=== PATIENT | female | born 1995 | race Two or more races ===

== ENCOUNTER 2017-12-04 16:11 | Emergency (ER) | payer SELFPAY ==
--- NOTE | 2017-12-04 18:22 | ER Document Report ---
ED GI/ - General Chief Complaint: STD Exposure Stated Complaint: POSSIBLE STD Time Seen by Provider: 12/04/17 17:50 Mode of Arrival: Ambulatory Information source: Patient Notes: 22-year-old female presents to ED for for complaint of possible STD with . She states she was having frequency and urgency so she did a test on 30 November and it was positive at home. She states that since then her boyfriend has had a penile discharge but she has had no symptoms. She wants to be tested for STDs since she is . TRAVEL OUTSIDE OF THE [place] IN LAST 30 DAYS: No - HPI Patient complains to provider of: , Other - Exposed to possible STDs Onset: Other - They did a home test on 30 November because she was having frequency and urgency Timing/Duration: Persistent Quality of pain: Burning Pain Level: Denies Sexual history: STD exposure Associated symptoms: Urinary frequency, Urinary urgency, Other - Julieta Exacerbated by: Denies Relieved by: Denies Similar symptoms previously: No Recently seen / treated by doctor: No - Related Data Allergies/Adverse Reactions: No Known Allergies Allergy (Unverified 12/04/17 16:14) Past Medical History - General Information source: Patient - Social History Smoking Status: Never Smoker Cigarette use (# per day): No Chew tobacco use (# tins/day): No Smoking Education Provided: No Frequency of alcohol use: None Drug Abuse: None Lives with: Spouse/Significant other Family History: Reviewed & Not Pertinent Patient has suicidal ideation: No Patient has homicidal ideation: No - Past Medical History Cardiac Medical History: Reports: None Pulmonary Medical History: Reports: None EENT Medical History: Reports: None Neurological Medical History: Reports: None Endocrine Medical History: Reports: None Renal/ Medical History: Reports: None Malignancy Medical History: Reports: None GI Medical History: Reports: None Musculoskeletal Medical History: Reports None Skin Medical History: Reports None Psychiatric Medical History: Reports: None Traumatic Medical History: Reports: None Infectious Medical History: Reports: None Surgical Hx: Negative Past Surgical History: Reports: None - Immunizations Immunizations up to date: Yes Review of Systems - Review of Systems Constitutional: No symptoms reported EENT: No symptoms reported Cardiovascular: No symptoms reported Respiratory: No symptoms reported Gastrointestinal: No symptoms reported Genitourinary: No symptoms reported Female Genitourinary: No symptoms reported Musculoskeletal: No symptoms reported Skin: No symptoms reported Hematologic/Lymphatic: No symptoms reported Neurological/Psychological: No symptoms reported -: Yes All other systems reviewed and negative Physical Exam - Vital signs Vitals: Temp Pulse Resp BP Pulse Ox 98.1 F 102 H 18 134/61 H 100 12/04/17 16:18 12/04/17 16:18 12/04/17 16:18 12/04/17 16:18 12/04/17 16:18 Interpretation: Normal - General General appearance: Appears well, Alert - HEENT Head: Normocephalic, Atraumatic Eyes: Normal Pupils: PERRL - Respiratory Respiratory status: No respiratory distress Chest status: Nontender Breath sounds: Normal Chest palpation: Normal - Cardiovascular Rhythm: Regular Heart sounds: Normal auscultation Murmur: No - Abdominal Inspection: Normal Distension: No distension Bowel sounds: Normal Tenderness: Nontender Organomegaly: No organomegaly - Back Back: Normal, Nontender - Extremities General upper extremity: Normal inspection, Nontender, Normal color, Normal ROM , Normal temperature General lower extremity: Normal inspection, Nontender, Normal color, Normal ROM , Normal temperature, Normal weight bearing. No: Irene's sign - Neurological Neuro grossly intact: Yes Cognition: Normal Orientation: AAOx4 [place] Coma Scale Eye Opening: Spontaneous [place] Coma Scale Verbal: Oriented Perfecto Coma Scale Motor: Obeys Commands Perfecto Coma Scale Total: 15 Speech: Normal Motor strength normal: LUE, RUE, LLE, RLE Sensory: Normal - Psychological Associated symptoms: Normal affect, Normal mood - Skin Skin Temperature: Warm Skin Moisture: Dry Skin Color: Normal Course - Re-evaluation Re-evalutation: 12/04/17 20:50 Lab results discussed with patient before she was discharged. She was positive for GC and chlamydia. She is already been treated with azithromycin and Rocephin. Her significant other has also checked in for STDs. He is on that had the symptoms. Patient did have a positive test. She has been instructed to follow-up [place] [facility] [place] [facility] [place] Patient verbalized understanding and agreement with treatment plan. - Vital Signs Vital signs: Temp Pulse Resp BP Pulse Ox 98.1 F 102 H 18 134/61 H 100 12/04/17 16:18 12/04/17 16:18 12/04/17 16:18 12/04/17 16:18 12/04/17 16:18 - Laboratory Laboratory results interpreted by me: 12/04/17 12/04/17 18:10 18:10 Urine HCG, Qual POSITIVE H Chlamydia DNA (PCR) DETECTED H N.gonorrhoeae DNA (PCR) DETECTED H Discharge - Discharge Clinical Impression: Possible exposure to STD, and not yet delivered in first trimester Condition: Stable Disposition: HOME, SELF-CARE Instructions: [facility] [place] Additional Instructions: You are . care is best started as early in as possible. If you're unsure about continuing this , you should discuss this with your physician or with roller painter at [facility]. You should take only medications approved by your physician. Acetaminophen can safely be taken for minor pains. As a rule, medication for chronic conditions such as asthma or seizures can safely be continued. You should discuss with the physician every medicine you take. Any regular exercise program can be continued. Talk to your physician, however, before engaging in competitive or demanding sports. Alcohol, smoking, and "street drugs" are dangerous to your baby. Cocaine is especially dangerous. Don't use any illicit drugs! You state you have been exposed to STD. You were treated for GC chlamydia, trichomonas, bacterial vaginosis, and yeast. Gonorrhea and Chlamydia results do not come back for about 2-3 hours. You will be treated with Rocephin and azithromycin while in the C room. You can call tomorrow to [phone] the culture result Or you can call tomorrow between 9 AM and 9 PM [phone] and ask for Marcela and I will give you the results. No sexual intercourse until you hear the results and if the results are positive for you or your boyfriend there is no sexual intercourse for 14 days from the day you are both treated. CEPHALOSPORINS: An antibiotic of the cephalosporin class has been prescribed. This type of antibiotic covers a wide variety of infections, including those of the skin, lungs, middle ear, and urinary tract. This antibiotic is somewhat similar to the penicillin family. In rare cases , a person who is allergic to penicillin will also be allergic to this medication. If you have had a severe allergic reaction to penicillin, and have not taken this antibiotic since that time, notify your doctor. Antibiotics which cover many germs ("broad spectrum" antibiotics) are more likely to cause diarrhea or "yeast" infections. Women prone to vaginal yeast problems may suffer an attack after taking this antibiotic. In infants, oral thrush (white spots "stuck" on the cheek) or yeast diaper rash may result. See your doctor if these problems occur. Call the doctor at once if you develop hives, itching, shortness of breath , or lightheadedness. AZITHROMYCIN: Azithromycin (Zithromax) is a broad spectrum antibiotic in the same class as erythromycin. It can treat a variety of bacterial infections, but is most frequently used for respiratory infections. Azithromycin is extremely long-lasting. It accumulates in body tissues and continues to kill bacteria for many days. In order to improve absorption, Azithromycin should be taken at least one hour before or two hours after a meal. It does not have the same strong tendency to upset the stomach as erythromycin and is usually very well tolerated. Patients who have had a rash or other true allergic reactions to erythromycin should not take this medication. Call if you develop gastrointestinal distress, severe diarrhea, rash, hives, itching, or shortness of breath. FOLLOW-UP CARE: If you have been referred to a physician for follow-up care, call the physician s office for an appointment as you were instructed or within the next two days. If you experience worsening or a significant change in your symptoms, notify the physician immediately or return to the Emergency Department at any time for re-evaluation. Referrals: [facility] [Provider Group] - Follow up as needed
[2017-12-04 18:41] LABS: T.VAGINALIS (WET MOUNT) NO TRICHOMONAS SEEN; WBCS (WET MOUNT) NO WBCS SEEN; YEAST (WET MOUNT) NO YEAST SEEN
[2017-12-04] MEDS ORDERED: LIDOCAINE 1% INJ-PF (10 MG/ML) 30 ML SDV INJ ONE (18:42)
[2017-12-04] MEDS ORDERED: AZITHROMYCIN 250 MG TABLET PO ONE (18:42)
[2017-12-04] MEDS ORDERED: CEFTRIAXONE INJ 250 MG VIAL IM ONE (18:42)
[2017-12-04 18:46] LABS: APPEARANCE,URINE CLEAR; BILIRUBIN,URINE NEGATIVE (NEGATIVE); COLOR,URINE STRAW; GLUCOSE, URINE NEGATIVE (NEGATIVE); KETONES,URINE NEGATIVE (NEGATIVE); LEUKOCYTE ESTERASE,URINE NEGATIVE (NEGATIVE); NITRITE,URINE NEGATIVE (NEGATIVE); PROTEIN,URINE NEGATIVE (NEGATIVE); UROBILINOGEN,URINE NEGATIVE mg/dL (<2.0)
[2017-12-04 20:08] LABS: CHLAM PCR DETECTED (NOT DETECT); GON PCR DETECTED (NOT DETECT)
[2017-12-04 21:14] VITALS: BP 131/66
== END 2017-12-04 21:00 | disposition home or self-care (01) ==
LOC: ER 16:11
DX: O98.211 Gonorrhea complicating pregnancy, first trimester (principal); O98.311 Other infections with a predominantly sexual mode of transmission complicating pregnancy, first trimester; A56.8 Sexually transmitted chlamydial infection of other sites; R35.0 Frequency of micturition; R39.15 Urgency of urination; Z3A.00 Weeks of gestation of pregnancy not specified
CPT/HCPCS: 99283; 96372; 87086; 87210; 81025; 81001; 87491; 87591; J3490; J0696

== ENCOUNTER → 2018-01-04 | Outpatient (CLI) | payer SELFPAY ==
--- NOTE | 2018-01-04 14:50 | RADIOLOGY REPORT (SQ) ---
EXAM DESCRIPTION: U/S [id number] TRNABD 1GES W/ODOP COMPLETED DATE/TIME: 01/04/2018 2:30 pm REASON FOR STUDY: Z34.01 ENCNTR FOR SUPRVSN OF NORMAL FIRST PREG, FIRST TRIMESTER Z34.01 ENCNTR FOR SUPRVSN OF NORMAL FIRST PREG, FIRST TRIMES COMPARISON: None. TECHNIQUE: Endovaginal static and realtime grayscale images acquired of the pelvis. Additional selec nanda spectral and color Doppler images recorded. All images stored on PACs. bHCG: Not available CLINICAL DATES: unsure LIMITATIONS: None. FINDINGS: FETUS: Single Living intrauterine . ULTRASOUND EGA: 8 weeks 6 days ULTRASOUND DOYLE: 08/10/2018 EFW: Not applicable less than 20 weeks. CRL: 2.2 cm FHR: 178 beats per minute. SURVEY: Too early to assess. AMNIOTIC FLUID: Adequate amount. PLACENTA: Not yet developed due to early gestation. SUBCHORIONIC BLEED: No SIZE OF BLEED: Not applicable. UTERUS: No masses. No anomalies. Uterus is 12 x 9 x 7 cm in size CERVICAL LENGTH: 2.4 cm. Closed. RIGHT ADNEXA: Not visualized due to adnexal bowel gas LEFT ADNEXA: Not visualized due to adnexal bowel gas FREE FLUID: None. OTHER: No other significant finding. IMPRESSION: LIVING INTRAUTERINE . EGA 8 weeks 6 days Right and left adnexa not visualized due to bowel gas Trimester of : First - 0 to 13 weeks. TECHNICAL DOCUMENTATION: JOB ID: [id number] [employer]- All Rights Reserved rev Reading location - IP/workstation name: [facility]
== END ==
LOC: RAD 16:25
PROVIDERS: ATTEND Nurse Practitioner
DX: Z34.01 Encounter for supervision of normal first pregnancy, first trimester (principal)
CPT/HCPCS: 76801

== ENCOUNTER 2018-03-26 09:43 | Outpatient (CLI) | payer MEDICAID ==
[2018-03-26 10:57] LABS: APPEARANCE,URINE SLIGHTLY-CLOUDY; BILIRUBIN,URINE NEGATIVE (NEGATIVE); COLOR,URINE YELLOW; GLUCOSE, URINE >=500 mg/dL (NEGATIVE); KETONES,URINE NEGATIVE (NEGATIVE); LEUKOCYTE ESTERASE,URINE SMALL (NEGATIVE); NITRITE,URINE NEGATIVE (NEGATIVE); PROTEIN,URINE NEGATIVE (NEGATIVE); URINE SPECIFIC GRAVITY 1.007; UROBILINOGEN,URINE NEGATIVE mg/dL (<2.0)
[2018-03-26 11:40] LABS: URINE AMPHETAMINES SCREEN NEGATIVE; URINE BARBITURATES SCREEN NEGATIVE; URINE BENZODIAZEPINES SCREEN NEGATIVE; URINE COCAINE SCREEN NEGATIVE; URINE MARIJUANA (THC) SCREEN NEGATIVE; URINE METHADONE SCREEN NEGATIVE; URINE PHENCYCLIDINE SCREEN NEGATIVE
== END 2018-03-26 10:51 | disposition home or self-care (01) ==
LOC: LC 09:43
PROVIDERS: ATTEND Obstetrics & Gynecology
PROC: 4A1HXCZ Monitoring of Products of Conception, Cardiac Rate, External Approach (ICD-10-PCS; principal; 2018-03-26)
DX: O47.02 False labor before 37 completed weeks of gestation, second trimester (principal); Z3A.20 20 weeks gestation of pregnancy
CPT/HCPCS: 80307; 81001

== ENCOUNTER 2018-08-12 10:20 | Outpatient (CLI) | payer MEDICAID | END 2018-08-12 11:15 | disposition home or self-care (01) | LOC: LC 10:20 | PROVIDERS: ATTEND Obstetrics & Gynecology | PROC: 4A1HXCZ Monitoring of Products of Conception, Cardiac Rate, External Approach (ICD-10-PCS; principal; 2018-08-12) | DX: O48.0 Post-term pregnancy (principal); Z3A.40 40 weeks gestation of pregnancy | CPT/HCPCS: 59025 ==

== ENCOUNTER 2018-08-17 16:57 | Inpatient (IN) | payer MEDICAID ==
[2018-08-18] MEDS ORDERED: CEFAZOLIN 2 GM/D5W RTU 2 GM/50 ML RTUPB IV PRN (07:53)
[2018-08-18 08:10] LABS: ABSOLUTE EOSINOPHILS # (AUTO) 0.3 10^3/uL (0.0-0.6); ABSOLUTE LYMPHOCYTES (AUTO) 1.7 10^3/uL (0.5-4.7); ABSOLUTE MONOCYTES (AUTO) 0.6 10^3/uL (0.1-1.4); ABSOLUTE NEUT (AUTO) 8.2 10^3/uL (1.7-8.2); BASOPHILS % (AUTO) 0.4 % (0-2); EOSINOPHILS % (AUTO) 3.1 % (0-6); HEMATOCRIT 35.9 % (36.0-47.0); HEMOGLOBIN 12.2 g/dL (12.0-15.5); LYMPHOCYTES % (AUTO) 15.5 % (13-45); MEAN CORPUSCULAR HEMOGLOBIN 28.5 pg (27.0-33.4); MEAN CORPUSCULAR HGB CONC 33.9 g/dL (32.0-36.0); MEAN CORPUSCULAR VOLUME 84 fl (80-97); MONOCYTES % (AUTO) 5.7 % (3-13); PLATELET COUNT 255 10^3/uL (150-450); RED BLOOD COUNT 4.28 10^6/uL (3.72-5.28); RED CELL DISTRIBUTION WIDTH 15.9 % (11.5-14.0); SEGMENTED NEUTROPHILS % (AUTO) 75.3 % (42-78); TOTAL CELLS COUNTED % (AUTO) 100 %; WHITE BLOOD COUNT 10.8 10^3/uL (4.0-10.5)
[2018-08-18 08:17] LABS: APPEARANCE,URINE CLOUDY; BILIRUBIN,URINE NEGATIVE (NEGATIVE); COLOR,URINE YELLOW; GLUCOSE, URINE NEGATIVE (NEGATIVE); KETONES,URINE NEGATIVE (NEGATIVE); LEUKOCYTE ESTERASE,URINE LARGE (NEGATIVE); NITRITE,URINE NEGATIVE (NEGATIVE); PROTEIN,URINE 30 mg/dL (NEGATIVE); URINE SPECIFIC GRAVITY 1.021; UROBILINOGEN,URINE NEGATIVE mg/dL (<2.0)
[2018-08-18 08:27] LABS: URINE AMPHETAMINES SCREEN NEGATIVE; URINE BARBITURATES SCREEN NEGATIVE; URINE BENZODIAZEPINES SCREEN NEGATIVE; URINE COCAINE SCREEN NEGATIVE; URINE MARIJUANA (THC) SCREEN NEGATIVE; URINE METHADONE SCREEN NEGATIVE; URINE PHENCYCLIDINE SCREEN NEGATIVE
[2018-08-18] MEDS ORDERED: RINGERS SOLUTION,LACTATED 1,000 ML IV ONE (08:30)
[2018-08-18] MEDS: RINGERS SOLUTION,LACTATED 1,000 ML IV PRN ×2 (08:37→17:17)
[2018-08-18] MEDS ORDERED: OXYTOCIN 10 UNIT/ML VIAL ONE (09:13)
[2018-08-18] MEDS ORDERED: OXYTOCIN/NORMAL SALINE 20 UNIT/1,000 ML RTUINJ ONE (09:13)
[2018-08-18] MEDS ORDERED: FENTANYL CITRATE INJ/PF 100 MCG/2 ML AMPUL ONE (09:13)
[2018-08-18] MEDS ORDERED: KETOROLAC TROMETHAMINE 60 MG/2 ML SDV ONE (09:13)
[2018-08-18] MEDS ORDERED: MIDAZOLAM 2 MG/2 ML INJ ONE (09:13)
[2018-08-18] MEDS ORDERED: ACETAMINOPHEN 1,000 MG/100 ML RTUPB IV ONE (09:14)
[2018-08-18] MEDS ORDERED: ONDANSETRON HCL INJ/PF 4 MG/2 ML SDV ONE (09:14)
[2018-08-18] MEDS ORDERED: MEPERIDINE HCL/PF INJ 25 MG/1 ML DISP.SYRIN IV PRN (09:48)
[2018-08-18] MEDS ORDERED: DIPHENHYDRAMINE HCL 50 MG/ML VIAL IV PRN ×2 (09:48→17:33)
[2018-08-18] MEDS ORDERED: FENTANYL CITRATE INJ/PF 100 MCG/2 ML AMPUL IV PRN ×3 (09:48)
[2018-08-18] MEDS ORDERED: MORPHINE SULFATE 10 MG/ML INJ IV PRN (09:48)
[2018-08-18] MEDS ORDERED: PROMETHAZINE HCL INJ 25 MG/1 ML VIAL IV PRN ×2 (09:48→11:56)
[2018-08-18] MEDS ORDERED: ONDANSETRON HCL INJ/PF 4 MG/2 ML SDV IV PRN (09:48)
--- NOTE | 2018-08-18 11:46 | PDOC DELIVERY SUMMARY ---
Delivery Summary - Maternal Hx : I DOYLE: 08/10/18 Gestational Age: 41+1 Risk Factors: Other - Malposition Ruptured Membranes: SROM Fluids: Meconium Stained - Delivery Labor: Not In Labor Presentation: Tranverse Lie Heart Rate Monitoring: Externally Uterine Contraction Monitoring: External Support Person Present: Yes : Scheduled Placenta: Within Normal Limits Placenta Description: Normal-appearing Number of Vessels (Cord): 3 Delivery of Placenta Date: 08/18/18 Estimated Blood Loss: 1000 ml Delivery Quantitative Blood Loss (QBL): 932 - Medications Type of Anesthesia:: Spinal - Delivery Personnel MD: RUBEN HOWELL
[2018-08-18] MEDS ORDERED: ACETAMINOPHEN 325 MG TABLET PO PRN (11:56)
[2018-08-18] MEDS ORDERED: HYDROMORPHONE HCL INJ/PF 2 MG/ML AMPULE IV PRN (11:56)
[2018-08-18] MEDS ORDERED: MEASLES,MUMPS&RUBELLA VACC/PF 0.5 ML VIAL SUBCUT PRN (11:56)
[2018-08-18] MEDS ORDERED: OXYCODONE-ACETAMINOPHEN 5-325 MG TABLET PO PRN (11:56)
[2018-08-18] MEDS ORDERED: DIPH/PERTUSS(ACELL)/TETANUS VAC/PF 0.5 ML SYR (>=10YO) IM PRN (11:56)
[2018-08-18] MEDS ORDERED: RINGERS SOLUTION,LACTATED 1,000 ML IV PRN (11:56)
[2018-08-18] MEDS ORDERED: OXYTOCIN/NORMAL SALINE 20 UNIT/1,000 ML RTUINJ IV PRN (11:56)
[2018-08-18] MEDS ORDERED: SIMETHICONE 80 MG TAB.CHEW PO PRN (11:56)
--- NOTE | 2018-08-18 11:56 | Operative Report ---
Operative Report DATE OF SURGERY: 08/18/18 PREOPERATIVE DIAGNOSIS: 1. Intrauterine at 41-1/7 weeks. 2. Transv erse lie (spine up). 3. GBS positive. 4. Rubella nonimmune. 5. Rh+ POSTOPERATIVE DIAGNOSIS: Same OPERATION: Primary low transverse section; converted to an inverted T incision SURGEON: RUBEN SHAFER ANESTHESIA: Spinal TISSUE REMOVED OR ALTERED: Placenta COMPLICATIONS: Low transverse section converted to a vertical incision ESTIMATED BLOOD LOSS: 1000 ml INTRAOPERATIVE FINDINGS: Female fetus in a transverse lie with spine up; right arm presentation with meconium; 2 at 1, 8 at 5 with a weight of 7 pounds 13 ounces. Normal uterus, bilateral tubes and ovaries PROCEDURE: The patient was taken to the operating room where spinal anesthesia was obtained and found to be adequate. She was then prepped and draped in the normal sterile fashion and placed in the dorsal supine position with a leftward tilt. A Pfannenstiel skin incision was then made and carried through to the underlying layers of the fascia with the scalpel. The fascia was incised in the midline and the incision extended laterally with the Mcginnis scissors. The superior aspect of the fascial incision was then grasped with Charlotte clamps elevated and the underlying rectus muscles dissected off both bluntly and sharply. Attention was then turned to the inferior aspect of the fascial incision which in a similar fashion was grasped, tented up with Charlotte clamps, and the rectus muscles dissected off both bluntly and sharply. The rectus muscles were then in the midline and the peritoneum was identified and entered both sharply and bluntly. The peritoneal incision was then extended superiorly and inferiorly with good visualization of the bladder. The bladder blade was inserted and the vesicouterine peritoneum identified grasped with Dominican pickups and entered sharply with the Metzenbaum scissors. This incision was then extended laterally with the Metzenbaum scissors and a bladder flap created digitally. The bladder blade was then reinserted and the lower uterine segment incised in a transverse fashion with the scalpel. The uterine incision was then extended bluntly and with the bandage scissors. Amniotomy was performed in which there was meconium. The bladder blade was removed and the 's right arm presented. Survey of presentation showed a transverse lie with the spine up. The uterine incision was then converted to a vertical incision. I then reached into the uterus and rotated the fetus to a breech position. The 2 lower extremities were then extracted. Next, the body was wrapped in a towel and the arms were then extracted. Next, the head was extracted, atraumatically. The cord doubly clamped and cut. The infant was handed off to waiting pediatricians. The placenta was then delivered manually. The uterus was not exteriorized. It was cleared of all clots and debris. Attention was then turned to the vertical portion of the incision, which was closed in 3 layers. The muscularis was closed in a running, locked fashion with 0 Vicryl. The second layer was closed with 0 chromic. The serosal was then closed with 3-0 Vicryl. The transverse uterine incision was then repaired with 0 Vicryl in a running locked fashion. 0-Chromic was used to obtain hemostasis via imbrication of the initial layer. The bladder flap was then repaired with 3-0 Vicryl in a running fashion. Interceed was placed overlying the uterine incisions, both vertically and transversely, to prevent adhesions. The gutters were cleared of all clots and debris. All operative sites were noted to be hemostatic. The fascia was reapproximated with 0 Vicryl in a running fashion from each lateral edge to the midline. The subcutaneous fat layer was then closed in an interrupted fashion with 3-0 vicryl. The skin was closed with 4-0 Monocryl in a running, subcuticular fashion. The patient tolerated the procedure well. Sponge, lap, needle and instrument counts are correct x 2. 2 g of Ancef were given prior to skin incision. The patient was taken to the recovery area awake and in stable condition.
[2018-08-18] MEDS: EPHEDRINE SULFATE INJ 50 MG/1 ML AMPULE ONE ×2 (16:39→21:54)
[2018-08-18] MEDS: IBUPROFEN 800 MG TABLET PO SCH ×3 (16:40→23:45)
[2018-08-18] MEDS: KETOROLAC TROMETHAMINE INJ/PF 30 MG/1 ML SDV IV SCH ×2 (16:41→21:53)
[2018-08-18] MEDS: DOCUSATE SODIUM 100 MG CAPSULE PO SCH (17:17)
[2018-08-18] MEDS ORDERED: DIPHENHYDRAMINE HCL 50 MG/ML VIAL ONE ×2 (17:28→18:15)
[2018-08-18] MEDS ORDERED: RINGERS SOLUTION,LACTATED 500 ML IV ONE (18:45)
[2018-08-18] MEDS ORDERED: METHYLPREDNISOLONE INJ 125 MG/2 ML SDV ONE (19:23)
--- NOTE | 2018-08-18 19:34 | PDOC PROGRESS REPORT ---
Subjective Progress Note for:: 08/18/18 Subjective:: Pt is currently sleeping secondary to Benadryl. She had an allergic reaction to food? No anaphylaxis. Reason For Visit: ENCOUNTER FOR SUPRVSN OF NORMAL , THIRD T Physical Exam - Physical Exam Vital Signs: Temp Pulse Resp BP Pulse Ox 98.2 F 65 16 132/73 H 100 08/18/18 17:10 08/18/18 17:10 08/18/18 17:10 08/18/18 17:10 08/18/18 17:10 Intake & Output 08/17/18 08/18/18 08/19/18 06:59 06:59 06:59 Intake Total 2550 Output Total 1402 Balance 1148 Weight 68.039 kg General appearance: PRESENT: no acute distress, other - edematous lips, face difficulty speaking Respiratory exam: PRESENT: clear to auscultation nitesh GI/Abdominal exam: PRESENT: normal bowel sounds, soft Result Laboratory Results: 08/18/18 08:00 08/18/18 08/18/18 08/18/18 07:48 08:00 08:00 WBC 10.8 H RBC 4.28 Hgb 12.2 Hct 35.9 L MCV 84 MCH 28.5 MCHC 33.9 RDW 15.9 H Plt Count 255 Seg Neutrophils % 75.3 Lymphocytes % 15.5 Monocytes % 5.7 Eosinophils % 3.1 Basophils % 0.4 Absolute Neutrophils 8.2 Absolute Lymphocytes 1.7 Absolute Monocytes 0.6 Absolute Eosinophils 0.3 Absolute Basophils 0.0 Urine Color YELLOW Urine Appearance CLOUDY Urine pH 6.0 Ur Specific [place] 1.021 Urine Protein 30 H Urine Glucose (UA) NEGATIVE Urine Ketones NEGATIVE Urine Blood NEGATIVE Urine Nitrite NEGATIVE Ur Leukocyte Esterase LARGE H Urine WBC (Auto) 11 Urine RBC (Auto) 2 Blood Type A POSITIVE Antibody Screen NEGATIVE Assessment & Plan - Diagnosis (1) Allergic reaction Is this a current diagnosis for this admission?: Yes - Time Time Spent with patient: 15-24 minutes - Plan Summary Plan Summary: 1. Solu-Medrol given 2. Will now try Epinephrine
[2018-08-18] MEDS ORDERED: EPINEPHRINE INJ/PF 1 MG/1 ML AMPULE ONE ×2 (19:38→20:13)
[2018-08-18] MEDS: EPINEPHRINE INJ 1 MG/10 ML DISP.SYRIN ONE ×2 (19:38→20:35)
[2018-08-18] MEDS ORDERED: DEXTROSE 5%-WATER 250 ML with PHENYLEPHRINE HCL 40 MG IV PRN ×2 (19:57)
[2018-08-18] MEDS ORDERED: NORMAL SALINE 1000 ML 1,000 ML IV SCH (20:00)
[2018-08-18] MEDS ORDERED: METHYLPREDNISOLONE INJ 125 MG/2 ML SDV IV ONE (20:00)
[2018-08-18] MEDS ORDERED: FAMOTIDINE INJ/PF 20 MG/2 ML SDV IV ONE (20:12)
[2018-08-18] MEDS ORDERED: RACEPINEPHRINE HCL 2.25% NEB 0.5 ML AMPUL NEB ONE (20:30)
[2018-08-18] MEDS: EPINEPHRINE INJ 1 MG/10 ML DISP.SYRIN IV ONE (20:36)
[2018-08-18 20:44] LABS: ABSOLUTE BASOPHILS # (AUTO) 0.2 10^3/uL (0.0-0.2); ABSOLUTE EOSINOPHILS # (AUTO) 0.1 10^3/uL (0.0-0.6); ABSOLUTE LYMPHOCYTES (AUTO) 2.1 10^3/uL (0.5-4.7); ABSOLUTE MONOCYTES (AUTO) 0.5 10^3/uL (0.1-1.4); BASOPHILS % (AUTO) 0.9 % (0-2); EOSINOPHILS % (AUTO) 0.3 % (0-6); HEMATOCRIT 36.6 % (36.0-47.0); HEMOGLOBIN 12.1 g/dL (12.0-15.5); LYMPHOCYTES % (AUTO) 11.4 % (13-45); MEAN CORPUSCULAR HEMOGLOBIN 27.7 pg (27.0-33.4); MEAN CORPUSCULAR VOLUME 84 fl (80-97); MONOCYTES % (AUTO) 2.4 % (3-13); PLATELET COUNT 269 10^3/uL (150-450); RED BLOOD COUNT 4.35 10^6/uL (3.72-5.28); RED CELL DISTRIBUTION WIDTH 15.8 % (11.5-14.0); TOTAL CELLS COUNTED % (AUTO) 100 %; WHITE BLOOD COUNT 18.8 10^3/uL (4.0-10.5)
[2018-08-18 20:52] LABS: INTERNATIONAL RATION (INR) 0.91; PROTHROMBIN TIME 12.7 SEC (11.4-15.4)
[2018-08-18 21:10] LABS: ALANINE AMINOTRANSFERASE 15 U/L (9-52); ALBUMIN 2.5 g/dL (3.5-5.0); ALKALINE PHOSPHATASE 130 U/L (38-126); ANION GAP 7 (5-19); ASPARTATE AMINO TRANSFERASE 29 U/L (14-36); BILIRUBIN,DIRECT 0.3 mg/dL (0.0-0.4); BILIRUBIN,TOTAL 0.5 mg/dL (0.2-1.3); BLOOD UREA NITROGEN 9 mg/dL (7-20); CALCIUM 8.6 mg/dL (8.4-10.2); CARBON DIOXIDE 20 mmol/L (22-30); CHLORIDE 109 mmol/L (98-107); GLUCOSE 105 mg/dL (75-110); POTASSIUM 3.8 mmol/L (3.6-5.0); SODIUM 136.3 mmol/L (137-145); TOTAL PROTEIN 5.5 g/dL (6.3-8.2)
[2018-08-18] MEDS: METHYLPREDNISOLONE INJ 125 MG/2 ML SDV IV SCH (21:53)
--- NOTE | 2018-08-18 23:36 | EKG REPORT ---
SEVERITY:- NORMAL ECG - SINUS RHYTHM : Confirmed by: Alisa Montelongo 18-Aug-2018 23:36:20
[2018-08-19] MEDS: RINGERS SOLUTION,LACTATED 1,000 ML IV PRN (02:44)
[2018-08-19 04:36] LABS: HEMATOCRIT 36.5 % (36.0-47.0); HEMOGLOBIN 11.8 g/dL (12.0-15.5); MEAN CORPUSCULAR HEMOGLOBIN 27.5 pg (27.0-33.4); MEAN CORPUSCULAR HGB CONC 32.4 g/dL (32.0-36.0); MEAN CORPUSCULAR VOLUME 85 fl (80-97); PLATELET COUNT 238 10^3/uL (150-450); RED BLOOD COUNT 4.29 10^6/uL (3.72-5.28); RED CELL DISTRIBUTION WIDTH 15.9 % (11.5-14.0); WHITE BLOOD COUNT 19.5 10^3/uL (4.0-10.5)
--- NOTE | 2018-08-19 05:29 | PDOC CONSULTATION ---
Consultation Consult Date: 08/18/18 Attending physician:: RUBEN SHAFER Provider Consulted: DIANELYS DELGADO Consult reason:: Anaphylaxis History of Present Illness Admission Date/PCP: 08/18/18 07:16 ZELALEM MICHAEL MD Patient complains of: Lip swelling History of Present Illness: CINTHIA QUINN is a 23 year old female who is postop day 0 for an uncomplicated . 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 Patient has received Benadryl 25 IV x2, Solu-Medrol, epinephrine x1 with persistent symptoms of facial predominately lower lip swelling, widespread hives and now developed hypotension of 86/45 and tachycardia of 106. She received an additional dose of epinephrine and brought to the intensive care unit for an aphylaxis. Patient symptoms began shortly after eating a meal, she denies previous episode she denies shortness of breath difficulty swallowing chest pain nausea or vomiting. Past Medical History Medical History: None Past Surgical History Past Surgical History: Reports: Section Social History Information Source: Patient, [facility] Records Lives with: Spouse/Significant other Smoking Status: Never Smoker Frequency of Alcohol Use: None Drugs: None - Advance Directive Resuscitation Status: Full Code Family History Family History: Hypertension Parental Family History Reviewed: Yes Children Family History Reviewed: Yes Sibling(s) Family History Reviewed.: Yes Medication/Allergy Home Medications: Sel254/Iron Fum/Folic/Docusate [ 19 Tablet] 1 tab PO DAILY 08/12/18 Allergies/Adverse Reactions: soy sauce Allergy (Severe, Uncoded 08/18/18 18:33) Swelling of Throat Review of Systems Constitutional: ABSENT: chills, fever(s), headache(s), weight gain, weight loss Eyes: ABSENT: visual disturbances Ears: ABSENT: hearing changes Cardiovascular: ABSENT: chest pain, dyspnea on exertion, edema, orthropnea, palpitations Respiratory: ABSENT: cough, hemoptysis Gastrointestinal: ABSENT: abdominal pain, constipation, diarrhea, hematemesis, hematochezia, nausea, vomiting Genitourinary: ABSENT: dysuria, hematuria Musculoskeletal: ABSENT: joint swelling Integumentary: ABSENT: rash, wounds Neurological: ABSENT: abnormal gait, abnormal speech, confusion, dizziness, focal weakness, syncope Psychiatric: ABSENT: anxiety, depression, homidical ideation, suicidal ideation Endocrine: ABSENT: cold intolerance, heat intolerance, polydipsia, polyuria Hematologic/Lymphatic: ABSENT: easy bleeding, easy bruising Physical Exam Vital Signs: Temp Pulse Resp BP Pulse Ox 98.1 F 70 16 105/68 99 08/19/18 04:00 08/18/18 22:38 08/19/18 04:29 08/19/18 04:29 08/19/18 04:29 Intake & Output 08/17/18 08/18/18 08/19/18 11:59 11:59 11:59 Intake Total 1400 2150 Output Total 1222 830 Balance 178 1320 Weight 68.039 kg 70.9 kg General appearance: PRESENT: cooperative, mild distress. ABSENT: disheveled Head exam: PRESENT: atraumatic, normocephalic Head Image: 1 - Severe edema with erythema Eye exam: PRESENT: conjunctiva pink, EOMI, PERRLA. ABSENT: scleral icterus Ear exam: PRESENT: normal external ear exam Mouth exam: PRESENT: moist, tongue midline, other - Minor tongue involvement, no evidence for airway obstruction Neck exam: PRESENT: full ROM. ABSENT: carotid bruit, JVD, lymphadenopathy, meningismus, tenderness, thyromegaly, tracheal deviation Respiratory exam: PRESENT: clear to auscultation nitesh. ABSENT: rales, rhonchi, wheezes Cardiovascular exam: PRESENT: gallop, RRR, tachycardia. ABSENT: diastolic murmur, rubs, systolic murmur Pulses: PRESENT: normal dorsalis pedis pul Vascular exam: PRESENT: normal capillary refill GI/Abdominal exam: PRESENT: normal bowel sounds, soft. ABSENT: distended, guarding, mass, organolmegaly, rebound, tenderness Rectal exam: PRESENT: deferred Extremities exam: PRESENT: full ROM. ABSENT: calf tenderness, clubbing, pedal edema Neurological exam: PRESENT: alert, awake, oriented to person, oriented to place, oriented to time, oriented to situation, CN II-XII grossly intact. ABSENT: motor sensory deficit Psychiatric exam: PRESENT: appropriate affect, normal mood. ABSENT: homicidal ideation, suicidal ideation Skin exam: PRESENT: dry, erythema - Nonpruritic, intact, warm. ABSENT: cyanosis, rash Results Laboratory Results: 08/19/18 04:01 08/18/18 20:31 08/18/18 08/18/18 08/18/18 07:48 08:00 08:00 WBC 10.8 H RBC 4.28 Hgb 12.2 Hct 35.9 L MCV 84 MCH 28.5 MCHC 33.9 RDW 15.9 H Plt Count 255 Seg Neutrophils % 75.3 Lymphocytes % 15.5 Monocytes % 5.7 Eosinophils % 3.1 Basophils % 0.4 Absolute Neutrophils 8.2 Absolute Lymphocytes 1.7 Absolute Monocytes 0.6 Absolute Eosinophils 0.3 Absolute Basophils 0.0 Sodium Potassium Chloride Carbon Dioxide Anion Gap BUN Creatinine Est GFR ( Amer) Est GFR (Non-Af Amer) Glucose Calcium Total Bilirubin AST ALT Alkaline Phosphatase Total Protein Albumin Urine Color YELLOW Urine Appearance CLOUDY Urine pH 6.0 Ur Specific [place] 1.021 Urine Protein 30 H Urine Glucose (UA) NEGATIVE Urine Ketones NEGATIVE Urine Blood NEGATIVE Urine Nitrite NEGATIVE Ur Leukocyte Esterase LARGE H Urine WBC (Auto) 11 Urine RBC (Auto) 2 Blood Type A POSITIVE Antibody Screen NEGATIVE 08/18/18 08/18/18 08/19/18 20:31 20:31 04:01 WBC 18.8 H 19.5 H RBC 4.35 4.29 Hgb 12.1 11.8 L Hct 36.6 36.5 MCV 84 85 MCH 27.7 27.5 MCHC 33.0 32.4 RDW 15.8 H 15.9 H Plt Count 269 238 Seg Neutrophils % 85.0 H Lymphocytes % 11.4 L Monocytes % 2.4 L Eosinophils % 0.3 Basophils % 0.9 Absolute Neutrophils 16.0 H Absolute Lymphocytes 2.1 Absolute Monocytes 0.5 Absolute Eosinophils 0.1 Absolute Basophils 0.2 Sodium 136.3 L Potassium 3.8 Chloride 109 H Carbon Dioxide 20 L Anion Gap 7 BUN 9 Creatinine 0.52 Est GFR ( Amer) > 60 Est GFR (Non-Af Amer) > 60 Glucose 105 Calcium 8.6 Total Bilirubin 0.5 AST 29 ALT 15 Alkaline Phosphatase 130 H Total Protein 5.5 L Albumin 2.5 L Urine Color Urine Appearance Urine pH Ur Specific [place] Urine Protein Urine Glucose (UA) Urine Ketones Urine Blood Urine Nitrite Ur Leukocyte Esterase Urine WBC (Auto) Urine RBC (Auto) Blood Type Antibody Screen Assessment and Plan - Diagnosis (1) Anaphylaxis Is this a current diagnosis for this admission?: Yes Plan: Exact trigger unknown, epinephrine as needed, Pepcid, Solu-Medrol, 1 L normal saline challenge, reassurance supportive care and anticipation of 12-hour rebound. (2) Hypotension Is this a current diagnosis for this admission?: Yes Plan: Secondary to #1, continue ICU monitoring - Time Time Spent with patient: 25-34 minutes - Inpatient Certification Medical Necessity: Need Close Monitoring Due to Risk of Patient Decompensation
[2018-08-19] MEDS ORDERED: METHYLPREDNISOLONE INJ 125 MG/2 ML SDV ONE (06:07)
[2018-08-19] MEDS: KETOROLAC TROMETHAMINE INJ/PF 30 MG/1 ML SDV IV SCH ×3 (06:11→22:29)
[2018-08-19] MEDS: METHYLPREDNISOLONE INJ 125 MG/2 ML SDV IV SCH ×3 (06:11→22:17)
[2018-08-19] MEDS: IBUPROFEN 800 MG TABLET PO SCH (06:11)
[2018-08-19] MEDS ORDERED: RINGERS SOLUTION,LACTATED 1,000 ML IV PRN ×2 (08:27→09:28)
[2018-08-19] MEDS: PRENATAL VITAMIN W DHA CAPSULE PO SCH (10:20)
[2018-08-19] MEDS: DOCUSATE SODIUM 100 MG CAPSULE PO SCH ×2 (10:20→17:32)
[2018-08-19] MEDS: OXYCODONE-ACETAMINOPHEN 5-325 MG TABLET PO PRN ×2 (10:49→22:18)
[2018-08-19] MEDS: EPINEPHRINE INJ 1 MG/10 ML DISP.SYRIN IV ONE (11:44)
--- NOTE | 2018-08-19 12:21 | PDOC PROGRESS REPORT ---
Subjective Progress Note for:: 08/19/18 Subjective:: This is 23 years old female status post who developed sudden onset anaphylactic reaction evidenced by shortness of breath facial and tongue swelling and hypotension. Patient has been managed aggressively with fluid administration H2 blockers including Pepcid Benadryl epinephrine and steroid. This morning I seen patient sitting up in bed awake alert oriented the swelling completely subsided and patient is witnessed while she is eating well and tolerates well. Patient is stable enough to be downgraded to regular floor. Reason For Visit: ENCOUNTER FOR SUPRVSN OF NORMAL , THIRD T Physical Exam Vital Signs: Temp Pulse Resp BP Pulse Ox 98.4 F 82 15 102/60 100 08/19/18 12:02 08/19/18 12:02 08/19/18 12:02 08/19/18 12:02 08/19/18 12:02 Intake & Output 08/18/18 08/19/18 08/20/18 06:59 06:59 06:59 Intake Total 3550 Output Total 2327 0 Balance 1223 0 Weight 70.9 kg General appearance: PRESENT: no acute distress Head exam: PRESENT: atraumatic Eye exam: PRESENT: conjunctiva pink Neck exam: ABSENT: carotid bruit, JVD, lymphadenopathy, thyromegaly Respiratory exam: PRESENT: clear to auscultation nitesh. ABSENT: rales, rhonchi, wheezes GI/Abdominal exam: PRESENT: normal bowel sounds, soft. ABSENT: distended, guarding, mass, organolmegaly, rebound, tenderness Neurological exam: PRESENT: alert, awake, oriented to time, oriented to situation Results Laboratory Results: 08/19/18 04:01 08/18/18 20:31 08/18/18 08/18/18 08/19/18 20:31 20:31 04:01 WBC 18.8 H 19.5 H RBC 4.35 4.29 Hgb 12.1 11.8 L Hct 36.6 36.5 MCV 84 85 MCH 27.7 27.5 MCHC 33.0 32.4 RDW 15.8 H 15.9 H Plt Count 269 238 Seg Neutrophils % 85.0 H Lymphocytes % 11.4 L Monocytes % 2.4 L Eosinophils % 0.3 Basophils % 0.9 Absolute Neutrophils 16.0 H Absolute Lymphocytes 2.1 Absolute Monocytes 0.5 Absolute Eosinophils 0.1 Absolute Basophils 0.2 Sodium 136.3 L Potassium 3.8 Chloride 109 H Carbon Dioxide 20 L Anion Gap 7 BUN 9 Creatinine 0.52 Est GFR ( Amer) > 60 Est GFR (Non-Af Amer) > 60 Glucose 105 Calcium 8.6 Total Bilirubin 0.5 AST 29 ALT 15 Alkaline Phosphatase 130 H Total Protein 5.5 L Albumin 2.5 L Assessment and Plan - Diagnosis (1) Anaphylaxis Qualifiers: Encounter type: initial encounter Qualified Code(s): T78.2XXA - Anaphylactic shock, unspecified, initial encounter Is this a current diagnosis for this admission?: Yes Plan: Patient has been managed aggressively with Pepcid, epinephrine and Solu-Medrol and IV hydration. 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
--- NOTE | 2018-08-19 14:28 | PDOC PROGRESS REPORT ---
Subjective-OB Progress Note for:: 08/19/18 Subjective: reports bleeding slowing, pain controlled with current meds. denies needs Physical Exam (OB) Vital Signs: Temp Pulse Resp BP Pulse Ox 98.4 F 82 15 102/60 100 08/19/18 12:02 08/19/18 12:02 08/19/18 12:02 08/19/18 12:02 08/19/18 12:02 Intake & Output 08/18/18 08/19/18 08/20/18 06:59 06:59 06:59 Intake Total 3550 Output Total 2327 0 Balance 1223 0 Weight 70.9 kg - Dressing Removed: Yes - pressure dressing removed Incision: Dressing, Well Approximated Closure Type: op site - Abdomen Description: Soft, Round Hernia Present: No Fundal Description: Firm, Midline Fundal Height: u/u - u/2 - Abdominal Distension: No distension Tenderness: Nontender - Extremities Lower extremities: Irene's sign - neg Calf: Normal, Nontender Objective-Diagnostic Laboratory: 08/19/18 04:01 08/18/18 20:31 08/18/18 08/18/18 08/19/18 20:31 20:31 04:01 WBC 18.8 H 19.5 H RBC 4.35 4.29 Hgb 12.1 11.8 L Hct 36.6 36.5 MCV 84 85 MCH 27.7 27.5 MCHC 33.0 32.4 RDW 15.8 H 15.9 H Plt Count 269 238 Seg Neutrophils % 85.0 H Lymphocytes % 11.4 L Monocytes % 2.4 L Eosinophils % 0.3 Basophils % 0.9 Absolute Neutrophils 16.0 H Absolute Lymphocytes 2.1 Absolute Monocytes 0.5 Absolute Eosinophils 0.1 Absolute Basophils 0.2 Sodium 136.3 L Potassium 3.8 Chloride 109 H Carbon Dioxide 20 L Anion Gap 7 BUN 9 Creatinine 0.52 Est GFR ( Amer) > 60 Est GFR (Non-Af Amer) > 60 Glucose 105 Calcium 8.6 Total Bilirubin 0.5 AST 29 ALT 15 Alkaline Phosphatase 130 H Total Protein 5.5 L Albumin 2.5 L Assessment and Plan(PN) - Assessment and Plan (1) Anaphylaxis Qualifiers: Encounter type: initial encounter Qualified Code(s): T78.2XXA - Anaphylactic shock, unspecified, initial encounter Is this a current diagnosis for this admission?: Yes (2) Status post section Is this a current diagnosis for this admission?: Yes - Time Spent with Patient Time with patient: Less than 15 minutes - Disposition Anticipated Discharge: Home Within: within 48 hours
[2018-08-20] MEDS: METHYLPREDNISOLONE INJ 125 MG/2 ML SDV IV SCH (05:58)
[2018-08-20] MEDS: KETOROLAC TROMETHAMINE INJ/PF 30 MG/1 ML SDV IV SCH (06:31)
[2018-08-20 06:49] LABS: HEMATOCRIT 30.4 % (36.0-47.0); MEAN CORPUSCULAR HEMOGLOBIN 27.7 pg (27.0-33.4); MEAN CORPUSCULAR VOLUME 84 fl (80-97); PLATELET COUNT 243 10^3/uL (150-450); RED BLOOD COUNT 3.62 10^6/uL (3.72-5.28); RED CELL DISTRIBUTION WIDTH 15.7 % (11.5-14.0); WHITE BLOOD COUNT 20.6 10^3/uL (4.0-10.5)
[2018-08-20 06:53] LABS: ANION GAP 7 (5-19); BLOOD UREA NITROGEN 8 mg/dL (7-20); CALCIUM 8.7 mg/dL (8.4-10.2); CARBON DIOXIDE 26 mmol/L (22-30); CHLORIDE 106 mmol/L (98-107); GLUCOSE 113 mg/dL (75-110); POTASSIUM 3.8 mmol/L (3.6-5.0); SODIUM 139.1 mmol/L (137-145)
[2018-08-20 07:50] LABS: ABSOLUTE NEUTROPHILS# (MANUAL) 19.6 10^3/uL (1.7-8.2); BASOPHILS % (MANUAL) 0 % (0-2); EOSINOPHILS % (MANUAL) 0 % (0-6); LYMPHOCYTES % (MANUAL) 5 % (13-45); MONOCYTES % (MANUAL) 0 % (3-13); SEGMENTED NEUTROPHILS % (MAN) 95 % (42-78); TOTAL CELLS COUNTED 100
[2018-08-20 07:51] LABS: ANISOCYTOSIS SLIGHT; OVALOCYTES SLIGHT; PLATELET COMMENT ADEQUATE; POIKILOCYTOSIS SLIGHT
[2018-08-20] MEDS: DOCUSATE SODIUM 100 MG CAPSULE PO SCH (09:53)
[2018-08-20] MEDS: PRENATAL VITAMIN W DHA CAPSULE PO SCH (09:53)
--- NOTE | 2018-08-20 12:30 | PDOC DISCHARGE SUMMARY ---
Final Diagnosis Discharge Date: 08/20/18 - Final Diagnosis (1) Transverse lie, delivered, current hospitalization Is this a current diagnosis for this admission?: Yes (2) Allergic reaction Is this a current diagnosis for this admission?: Yes (3) Status post section Is this a current diagnosis for this admission?: Yes Discharge Data - Discharge Medication Home Medications: [id number]/Iron Fum/Folic/Docusate [ 19 Tablet] 1 tab PO DAILY 08/12/18 Reason(s) for Admission: PROM Procedures: NST, Management of Obstetric Complications Intrapartum Procedure(s): : Low Cervical, Transverse - Diagnosis Test Laboratory: Temp Pulse Resp BP Pulse Ox 97.9 F 78 18 126/60 H 100 08/20/18 07:17 08/20/18 07:17 08/20/18 07:17 08/20/18 07:17 08/20/18 07:17 08/18/18 08/18/18 08/18/18 07:48 08:00 20:31 RBC 4.28 4.35 Hgb 12.2 12.1 Hct 35.9 L 36.6 Urine Opiates Screen NEGATIVE 08/19/18 08/20/18 04:01 06:17 RBC 4.29 3.62 L Hgb 11.8 L 10.0 L Hct 36.5 30.4 L Urine Opiates Screen - Discharge information/Instructions Discharge Activity: Balance Activity w/Rest, Pelvic Rest Discharge Diet: Regular Disposition: HOME, SELF-CARE Follow up with: [facility] in: 1, Weeks
[2018-08-20 13:34] VITALS: BP 118/62
--- NOTE | 2018-08-20 15:16 | PDOC PROGRESS REPORT ---
Subjective Progress Note for:: 08/20/18 Subjective:: Patient seen and examined while sitting at the bedside. She is awake alert oriented. He is not in pain or distress. The swelling on her face tongue has completely subsided. Patient is stable enough to go home and will sign off. Reason For Visit: ENCOUNTER FOR SUPRVSN OF NORMAL , THIRD T Physical Exam Vital Signs: Temp Pulse Resp BP Pulse Ox 98.3 F 72 18 118/62 100 08/20/18 13:32 08/20/18 13:32 08/20/18 13:32 08/20/18 13:32 08/20/18 13:32 Intake & Output 08/19/18 08/20/18 08/21/18 06:59 06:59 06:59 Intake Total 3550 1350 350 Output Total 2327 1225 Balance 1223 125 350 Weight 70.9 kg General appearance: PRESENT: no acute distress Neck exam: ABSENT: carotid bruit, JVD, lymphadenopathy, thyromegaly Respiratory exam: PRESENT: clear to auscultation nitesh. ABSENT: rales, rhonchi, wheezes Cardiovascular exam: PRESENT: RRR. ABSENT: diastolic murmur, rubs, systolic murmur GI/Abdominal exam: PRESENT: normal bowel sounds, soft. ABSENT: distended, guarding, mass, organolmegaly, rebound, tenderness Neurological exam: PRESENT: alert, awake, oriented to time, oriented to situation Results Laboratory Results: 08/20/18 06:17 08/20/18 06:17 08/20/18 08/20/18 06:17 06:17 WBC 20.6 H RBC 3.62 L Hgb 10.0 L Hct 30.4 L MCV 84 MCH 27.7 MCHC 33.0 RDW 15.7 H Plt Count 243 Seg Neutrophils % Not Reportable Lymphocytes % Not Reportable Monocytes % Not Reportable Eosinophils % Not Reportable Basophils % Not Reportable Absolute Neutrophils Not Reportable Absolute Lymphocytes Not Reportable Absolute Monocytes Not Reportable Absolute Eosinophils Not Reportable Absolute Basophils Not Reportable Sodium 139.1 Potassium 3.8 Chloride 106 Carbon Dioxide 26 Anion Gap 7 BUN 8 Creatinine 0.35 L Est GFR ( Amer) > 60 Est GFR (Non-Af Amer) > 60 Glucose 113 H Calcium 8.7 Assessment and Plan - Diagnosis (1) Anaphylaxis Qualifiers: Encounter type: initial encounter Qualified Code(s): T78.2XXA - Anap hylactic shock, unspecified, initial encounter Is this a current diagnosis for this admission?: Yes Plan: Patient has been managed aggressively with Pepcid, epinephrine and Solu-Medrol and IV hydration. 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
== END 2018-08-20 16:55 | disposition home or self-care (01) | DRG 787 ==
LOC: 2S 08-18 07:16 → ICU 08-18 20:05 → 2S 08-19 11:59
PROVIDERS: ADMIT Obstetrics & Gynecology; ATTEND Obstetrics & Gynecology
PROC: 10D00Z0 Extraction of Products of Conception, High, Open Approach (ICD-10-PCS; principal; 2018-08-18 09:00)
PROC: 3E0234Z Introduction of Serum, Toxoid and Vaccine into Muscle, Percutaneous Approach (ICD-10-PCS; 2018-08-20)
DX: O64.8XX0 Obstructed labor due to other malposition and malpresentation, not applicable or unspecified (principal); T78.00XA Anaphylactic reaction due to unspecified food, initial encounter; O77.0 Labor and delivery complicated by meconium in amniotic fluid; O99.824 Streptococcus B carrier state complicating childbirth; Z3A.41 41 weeks gestation of pregnancy; Z37.0 Single live birth; I95.89 Other hypotension; Z91.018 Allergy to other foods; Z23 Encounter for immunization
CPT/HCPCS: 1961; 36415; 59025; 80048; 80053; 80307; 81001; 83010; 83615; 85025; 85027; 85610; 86850; 86900; 86901; 88307; 90715; 93005; 93010; 94799; C1765; J0131; J0171; J0690; J1170; J1200; J1885; J2250; J2405; J2590; J2930; J3010; J3490; J7120; S0028